=== PATIENT | female | born 1965 | race Caucasian/White ===

== ENCOUNTER 2016-10-14 09:46 | Emergency (ER) | payer BC ==
[2016-10-14] MEDS ORDERED: Aspirin Low Dose CHEW TAB* 81 MG PO ONE (10:03)
[2016-10-14 10:12] VITALS: BP 137/89
--- NOTE | 2016-10-14 12:35 | UC ---
Fior Reyez Claudia, scribed for Eloina Landry MD on 10/14/16 at 1004 . Cardiac HPI - HPI Summary HPI Summary: 50 year old female presents to the [facility] with mid-sternal CP. Pt states no PMHx of Cardiac Disease. Pt states the sudden onset of pain at 9:00am. Pt states it is waves of sharp pain and the worst pain was 9/10 and caused her to catch her breath and bend over in pain. Pt notes that she has been feeling fine for the past few days except for some allergies. Pt does note that on Thursday she began having some abd pain(cramping). Pt denies any cough, nausea, rash. Pt notes that she has 2 eggs and coffee at 6am today. Pt denies taking any aspirin daily. Pt denies any alleviating factors or aggravating factors. She thought that lying down alleviated the pain but states no change in the pain due to position. Pt notes that she did recently fly back from [place] 2 days ago. SHx Non smoker PMHx NO PERTINENT CARDIAC HISTORY, NO HTN, ASTHMA - History of Current Complaint Chief Complaint: UCChestPain Stated Complaint: CHEST PAIN Time Seen by Provider: 10/14/16 09:47 Hx Obtained From: Patient Onset/Duration: Sudden Onset - 9am, Still Present Timing: Intermittent Episodes Lasting: - "waves" of episodes Chest Pain Location: Mid Sternal Character: Sharp/Stabbing Aggravating: Nothing Alleviating: Nothing Associated Signs & Symptoms: Positive: Chest Pain, Diaphoresis - Allergy/Home Medications Allergies/Adverse Reactions: Allergies Allergy/AdvReac Type Severity Reaction Status Date / Time Penicillins Allergy Severe Rash Verified 10/14/16 09:53 erythromycin Allergy Severe Rash Uncoded 10/14/16 09:53 PMH/Surg Hx/FS Hx/Imm Hx Previously Healthy: Yes Endocrine History Of: Denies: Diabetes, Thyroid Disease Cardiovascular History Of: Reports: Cardiac Disorders - Murmur Functional Denies: Hypertension Respiratory History Of: Reports: Asthma, Bronchitis - 06/06 - 07/07 Denies: COPD GI/ History Of: Denies: Ulcer Cancer History Of: Denies: Breast Cancer - Surgical History Surgical History: None - Family History Known Family History: Negative: Cardiac Disease - Social History Occupation: Employed Full-time Lives: With Family Alcohol Use: Occasionally Substance Use Type: None Smoking Status (MU): Never Smoked Tobacco Review of Systems Constitutional: Other - SKIN DIAPHORESIS Skin: Negative Eyes: Negative ENT: Negative Respiratory: Negative Cardiovascular: Chest Pain Gastrointestinal: Negative Genitourinary: Negative Motor: Negative Neurovascular: Negative Musculoskeletal: Negative Neurological: Negative Psychological: Negative All Other Systems Reviewed And Are Negative: Yes Physical Exam Triage Information Reviewed: Yes Vital Signs: Initial Vital Signs Temp 96.0 F 10/14/16 09:48 Pulse 81 10/14/16 09:48 Resp 16 10/14/16 09:48 BP 156/94 10/14/16 09:48 Pulse Ox 100 10/14/16 09:48 Musculoskeletal Exam: Other - No venous cord, no homans. Distal ext's warm to touch. - Additional Comments * Appearance: Well-Nourished * Eye Exam: Normal * ENT Exam: Normal * Neck: Normal, No adenopathy appreciated * Respiratory Exam: Normal, no dyspnea, no tachypnea, normal respiratory rate * Chest non-tender, Lungs clear, Normal breath sounds, No respiratory distress, No accessory muscle use * Cardiovascular Exam: Normal * Cardiovascular: Heart rate regular, good general skin color, good capillary refill * RRR, No Murmur, Pulses Normal - sitting up. heart rate correlates w left radial pulse (if relevant), Brisk Capillary Refill * Abdominal Exam: Normal * Abdomen Description: Nontender, No Organomegaly, Soft * Bowel Sounds: Present * Musculoskeletal Exam: Normal * Musculoskeletal: Strength Intact * Neurological Exam: Normal: nonfocal, grossly intact * Psychological Exam: Normal: conversing easily and appropriately * Skin Exam: Normal: no visible or r * eported rash Diagnostics - EKG Cardiac Rate: NL - 81 beats/min. FL 151 QTC 454 no old EKG to compare Cardiac Rhythm: Sinus: Old - NSR 81 beats/min - Assessment/Plan Course Of Treatment: Encouraged to take ambulance to transfer to the ED but they decline and will take their car to the ED. 10am. No new problems in [facility]. ASA 81mg po x 4, single dose here in [facility]. Pt offered and encouraged to go the the ED, via ambulance, but she and her respectfully but firmly decline. ED notified. - Clinical Impression Provider Diagnoses: Acute chest pain - Physician Notifications Discussed Patient Care With: SPOKE WITH CONG MCDONOUGH AT [facility] AND SHE IS AWARE OF THE PT COING BY PRIVATE CAR. 10AM Discharge - Discharge Plan Condition: Guarded Disposition: TRANS HIGHER LVL OF CARE FAC Discharge Disposition Comment: TRASNFER TO [facility]. Referrals: Zoila Ordonez MD [Primary Care Provider] - The documentation as recorded by the Fior linton Claudia accurately reflects the service I personally performed and the decisions made by me, Eloina Landry MD.
== END 2016-10-14 10:12 | disposition short-term general hospital (02) ==
LOC: UCEAST 09:46
DX: R07.89 Other chest pain (principal)
CPT/HCPCS: 93005; 99212; A9270-GY; G0463

== ENCOUNTER 2016-10-14 10:32 | Emergency (ER) | payer BC ==
[2016-10-14] MEDS ORDERED: Aspirin Low Dose CHEW TAB* 81 MG PO ONE (11:06)
--- NOTE | 2016-10-14 11:30 | RAD ---
INDICATION: Chest pain. Asthma. COMPARISON: August 25, 2012 TECHNIQUE: Upright AP 1115 hours REPORT: Clear lungs and pleural spaces. Negative for pneumothorax. The heart, pulmonary vasculature, and mediastinal contours are unremarkable. Unremarkable osseous structures and soft tissue contours. IMPRESSION: No evidence for acute intrathoracic disease.
[2016-10-14 11:34] LABS: Hematocrit 43 % (35-47); Hemoglobin 14.1 g/dl (12.0-16.0); Mean Corpuscular HGB Conc 33 g/dl (31-36); Mean Corpuscular Hemoglobin 28 pg (27-31); Mean Corpuscular Volume 84 fL (80-97); Mean Platelet Volume 7 um3 (7.4-10.4); Red Blood Count 5.04 10^6/ul (4.0-5.4); Red Cell Distribution Width 13 % (10.5-15); White Blood Count 9.6 10^3/ul (3.5-10.8)
[2016-10-14 11:52] LABS: Albumin 4.3 g/dL (3.2-5.2); BUN/Creatinine Ratio 17.4 (8-20); Calcium 9.3 mg/dL (8.6-10.3); EGFR African American 90.2 (>60); EGFR Non-African American 70.1 (>60); Potassium 3.9 mmol/L (3.5-5.0); Total Bilirubin 0.7 mg/dL (0.2-1.0); Total Protein 7.3 g/dL (6.4-8.9)
[2016-10-14 12:23] LABS: TSH (Thyroid Stimulating Horm) 2.05 mcIU/mL (0.34-5.60)
[2016-10-14 12:29] LABS: Urine Bilirubin Negative (Negative); Urine Glucose Negative (Negative); Urine Nitrite Negative (Negative)
--- NOTE | 2016-10-14 16:47 | ED ---
Amado Reyez Auryana, scribed for Aston Burgess MD on 10/14/16 at 1316 . HPI Chest Pain - HPI Summary HPI Summary: 50 year old female presents with sharp intense chest pain starting at 09:00 this morning while cleaning teeth. She reports that the pain radiated to the mandibular anterior teeth and was a 9/10. The pain lasted 1 hour and located in the mid sternal area. She was seen [facility], given 4x ASA and referred to the ED for further evaluation. She denies any similar episodes. PMHx is significant seasonal allergies but no HTN, HLD, or DM. SHx is significant of occasional alcohol but no tobacco or recreational drug use. FHx is significant for KS, DM, and HTN - grandparents. - History of Current Complaint Chief Complaint: EDChestPainROMI Time Seen by Provider: 10/14/16 11:06 Hx Obtained From: Patient Onset/Duration: Started Hours Ago, Still Present Timing: Intermittent, Lasting Hours - 1 Initial Severity: Severe Current Severity: Mild Pain Intensity: 3 - report 9/10 during episode Pain Scale Used: 0-10 Numeric Chest Pain Location: Discrete at:, Mid Sternal Chest Pain Radiates: Yes Chest Pain Radiates To:: Jaw Character: Sharp/Stabbing - intense Alleviating Factor(s): OTC Meds - x4 ASA Associated Signs and Symptoms: Positive: Chest Pain - Allergy/Home Medications Allergies/Adverse Reactions: Allergies Allergy/AdvReac Type Severity Reaction Status Date / Time Penicillins Allergy Severe Rash Verified 10/14/16 09:53 erythromycin Allergy Severe Rash Uncoded 10/14/16 09:53 PMH/Surg Hx/FS Hx/Imm Hx Endocrine/Hematology History: Denies: Hx Diabetes, Hx Thyroid Disease Cardiovascular History: Denies: Hx Hypertension Respiratory History: Reports: Hx Asthma Denies: Hx Chronic Obstructive Pulmonary Disease (COPD) GI History: Denies: Hx Ulcer - Cancer History Hx Chemotherapy: No Hx Radiation Therapy: No Infectious Disease History: No Infectious Disease History: Denies: Hx Hepatitis, Hx Human Immunodeficiency Virus (HIV), Traveled Outside the [place] in Last 30 Days - Social History Occupation: Employed Full-time Lives: With Family Alcohol Use: Occasionally Hx Substance Use: No Substance Use Type: Reports: None Hx Tobacco Use: No Smoking Status (MU): Never Smoked Tobacco Review of Systems Constitutional: Negative Negative: Fever Eyes: Negative ENT: Negative Positive: Chest Pain Respiratory: Negative Gastrointestinal: Negative Genitourinary: Negative Musculoskeletal: Negative Skin: Negative Neurological: Negative Psychological: Normal All Other Systems Reviewed And Are Negative: Yes Physical Exam - Summary Physical Exam Summary: VITAL SIGNS: Reviewed. GENERAL: Patient is a well-developed and nourished female who is lying comfortable in the stretcher. Patient is not in any acute respiratory distress. HEAD AND FACE: No signs of trauma. No ecchymosis, hematomas or skull depressions. No sinus tenderness. EYES: PERRLA, EOMI x 2, No injected conjunctiva, no nystagmus. EARS: Hearing grossly intact. Ear canals and tympanic membranes are within normal limits. MOUTH: Oropharynx within normal limits. NECK: Supple, trachea is midline, no adenopathy, no JVD, no carotid bruit, no c- spine tenderness, neck with full ROM. CHEST: Symmetric, no tenderness at palpation LUNGS: Clear to auscultation bilaterally. No wheezing or crackles. CVS: Regular rate and rhythm, S1 and S2 present, no murmurs or gallops appreciated. ABDOMEN: Soft, non-tender. No signs of distention. No rebound no guarding, and no masses palpated. Bowel sounds are normal. EXTREMITIES: FROM in all major joints, no edema, no cyanosis or clubbing. NEURO: Alert and oriented x 3. No acute neurological deficits. Speech is normal and follows commands. SKIN: Dry and warm Triage Information Reviewed: Yes Vital Signs On Initial Exam: Initial Vitals Temp Pulse Resp BP Pulse Ox 97.4 F 74 18 148/84 100 10/14/16 10:33 10/14/16 10:33 10/14/16 10:33 10/14/16 10:33 10/14/16 10:33 Vital Signs Reviewed: Yes Diagnostics - Vital Signs Vital Signs Temp Pulse Resp BP Pulse Ox 10/14/16 11:06 72 17 99 10/14/16 11:03 138/82 10/14/16 10:36 97.4 F 76 20 148/84 100 10/14/16 10:33 97.4 F 74 18 148/84 100 - Laboratory Lab Results: Lab Results 10/14/16 10/14/16 10/14/16 Range/Units 11:20 11:20 11:20 WBC 9.6 (3.5-10.8) 10^3/ul RBC 5.04 (4.0-5.4) 10^6/ul Hgb 14.1 (12.0-16.0) g/dl Hct 43 (35-47) % MCV 84 (80-97) fL MCH 28 (27-31) pg MCHC 33 (31-36) g/dl RDW 13 (10.5-15) % Plt Count 322 (150-450) 10^3/ul MPV 7 L (7.4-10.4) um3 Neut % (Auto) 65.0 (38-83) % Lymph % (Auto) 26.8 (25-47) % Union % (Auto) 5.9 (1-9) % Eos % (Auto) 1.2 (0-6) % Baso % (Auto) 1.1 (0-2) % Absolute Neuts (auto) 6.3 (1.5-7.7) 10^3/ul Absolute Lymphs (auto) 2.6 (1.0-4.8) 10^3/ul Absolute Monos (auto) 0.6 (0-0.8) 10^3/ul Absolute Eos (auto) 0.1 (0-0.6) 10^3/ul Absolute Basos (auto) 0.1 (0-0.2) 10^3/ul Absolute Nucleated RBC 0.01 10^3/ul Nucleated RBC % 0.1 Sodium 133 (133-145) mmol/L Potassium 3.9 (3.5-5.0) mmol/L Chloride 101 (101-111) mmol/L Carbon Dioxide 26 (22-32) mmol/L Anion Gap 6 (2-11) mmol/L BUN 15 (6-24) mg/dL Creatinine 0.86 (0.51-0.95) mg/dL Est GFR ( Amer) 90.2 (>60) Est GFR (Non-Af Amer) 70.1 (>60) BUN/Creatinine Ratio 17.4 (8-20) Glucose 87 (70-100) mg/dL Lactic Acid 0.8 (0.5-2.0) mmol/L Calcium 9.3 (8.6-10.3) mg/dL Magnesium 2.0 (1.9-2.7) mg/dL Total Bilirubin 0.70 (0.2-1.0) mg/dL AST 19 (13-39) U/L ALT 15 (7-52) U/L Alkaline Phosphatase 86 (34-104) U/L Total Creatine Kinase 88 (10-223) U/L CK-MB (CK-2) 1.6 (0.6-6.3) ng/mL Troponin I 0.00 (<0.04) ng/mL B-Natriuretic Peptide ( - 100) pg/mL Total Protein 7.3 (6.4-8.9) g/dL Albumin 4.3 (3.2-5.2) g/dL Globulin 3.0 (2-4) g/dL Albumin/Globulin Ratio 1.4 (1-3) TSH 2.05 (0.34-5.60) mcIU/mL Urine Color Urine Appearance Urine pH (5-9) Ur Specific [place] (1.010-1.030) Urine Protein (Negative) Urine Ketones (Negative) Urine Blood (Negative) Urine Nitrate (Negative) Urine Bilirubin (Negative) Urine Urobilinogen (Negative) Ur Leukocyte Esterase (Negative) Urine Glucose (Negative) 10/14/16 10/14/16 10/14/16 Range/Units 11:20 12:20 15:00 WBC (3.5-10.8) 10^3/ul RBC (4.0-5.4) 10^6/ul Hgb (12.0-16.0) g/dl Hct (35-47) % MCV (80-97) fL MCH (27-31) pg MCHC (31-36) g/dl RDW (10.5-15) % Plt Count (150-450) 10^3/ul MPV (7.4-10.4) um3 Neut % (Auto) (38-83) % Lymph % (Auto) (25-47) % Union % (Auto) (1-9) % Eos % (Auto) (0-6) % Baso % (Auto) (0-2) % Absolute Neuts (auto) (1.5-7.7) 10^3/ul Absolute Lymphs (auto) (1.0-4.8) 10^3/ul Absolute Monos (auto) (0-0.8) 10^3/ul Absolute Eos (auto) (0-0.6) 10^3/ul Absolute Basos (auto) (0-0.2) 10^3/ul Absolute Nucleated RBC 10^3/ul Nucleated RBC % Sodium (133-145) mmol/L Potassium (3.5-5.0) mmol/L Chloride (101-111) mmol/L Carbon Dioxide (22-32) mmol/L Anion Gap (2-11) mmol/L BUN (6-24) mg/dL Creatinine (0.51-0.95) mg/dL Est GFR ( Amer) (>60) Est GFR (Non-Af Amer) (>60) BUN/Creatinine Ratio (8-20) Glucose (70-100) mg/dL Lactic Acid (0.5-2.0) mmol/L Calcium (8.6-10.3) mg/dL Magnesium (1.9-2.7) mg/dL Total Bilirubin (0.2-1.0) mg/dL AST (13-39) U/L ALT (7-52) U/L Alkaline Phosphatase (34-104) U/L Total Creatine Kinase (10-223) U/L CK-MB (CK-2) (0.6-6.3) ng/mL Troponin I 0.00 (<0.04) ng/mL B-Natriuretic Peptide 33 ( - 100) pg/mL Total Protein (6.4-8.9) g/dL Albumin (3.2-5.2) g/dL Globulin (2-4) g/dL Albumin/Globulin Ratio (1-3) TSH (0.34-5.60) mcIU/mL Urine Color Straw Urine Appearance Clear Urine pH 5.0 (5-9) Ur Specific [place] 1.004 L (1.010-1.030) Urine Protein Negative (Negative) Urine Ketones 1+ H (Negative) Urine Blood Negative (Negative) Urine Nitrate Negative (Negative) Urine Bilirubin Negative (Negative) Urine Urobilinogen Negative (Negative) Ur Leukocyte Esterase Negative (Negative) Urine Glucose Negative (Negative) Result Diagrams: 10/14/16 11:20 10/14/16 11:20 Lab Statement: Any lab studies that have been ordered have been reviewed, and results considered in the medical decision making process. - Radiology CXR Xray Interpretation: No Acute Changes Radiology Interpretation Completed By: Radiologist - EKG 10:58 EKG Interpretation: NSR @71 BPM, no ST elevation Chest Pain Course/Dx - Course Assessment/Plan: 50 year old female presents with sharp intense chest pain starting at 09:00 this morning while cleaning teeth. She reports that the pain radiated to the mandibular anterior teeth and was a 9/10. The pain lasted 1 hour and located in the mid sternal area. She was seen [facility], given 4x ASA and referred to the ED for further evaluation. She denies any similar episodes. PMHx is significant seasonal allergies but no HTN, HLD, or DM. SHx is significant of occasional alcohol but no tobacco or recreational drug use. FHx is significant for KS, DM, and HTN - grandparents. Test results are found within normal limits. UA is negative for UTI. CXR impression: No acute disease. In the ED course she hsa remain stable and asymptomatic. Patient denies any CP. Dr. Deshpande came and assess the patient. Request to have a second troponin and if negative he recommends discharge patient home. He will schedule for stress test. I discussed all the findings and test results with the patient. Patient was instructed to return to the emergency room immediately if any of the symptoms return or worsens. Plan of care was discussed with the patient and understands and agrees. All questions were answered at patient satisfaction. There were no further complaints or concerns. Lung exam before discharge: CTA B/L. Good air exchange. No wheezing or crackles heard. CVS: S1 and S2 present. No murmurs appreciated. Patient is alert and oriented x 3. Patient is hemodynamically stable. Patient will be discharged home with follow up PCP in the next 2-3 days - Chest Pain Differential Diagnosis/HQI/PQRI: Acute KS, ACS, Angina, CHF, Chest Wall, GI Disease, Lower Respiratory Infection - Diagnoses Provider Diagnoses: Chest pain Discharge - Discharge Plan Condition: Stable Disposition: HOME Patient Education Materials: Chest Pain (ED) Referrals: Romario Deshpande MD [Medical Doctor] - 2 Days The documentation as recorded by the Amado linton Auryana accurately reflects the service I personally performed and the decisions made by , Aston Burgess MD.
[2016-10-14 17:14] VITALS: BP 118/77
== END 2016-10-14 17:14 | disposition home or self-care (01) ==
LOC: ED 10:32
DX: R07.9 Chest pain, unspecified (principal)
CPT/HCPCS: 36415; 71010; 80053; 81003; 82550; 82553; 83605; 83735; 83880; 84443; 84484; 85025; 93005; 93017; 99283